=== PATIENT | female | born 1975 | race Caucasian/White ===

== ENCOUNTER 2021-09-08 23:08 | Emergency (ER) | payer OTHER ==
[2021-09-08 23:20] VITALS: BP 114/73; PULSE 74; TEMP 99; BMI 30.7
[2021-09-08] MEDS ORDERED: predniSONE 20 MG TABLET (UD) PO ONE (23:47)
[2021-09-08] MEDS ORDERED: valACYclovir HCL 1000 MG TABLET PO ONE (23:47)
[2021-09-09] MEDS ORDERED: predniSONE 20 MG TABLET (UD) ONE (00:15)
[2021-09-09] MEDS ORDERED: valACYclovir HCL 500 MG TABLET (FP) ONE (00:15)
[2021-09-09] MEDS ORDERED: PSEUDOEPHEDRINE HCL 60 MG TABLET PO ONE (01:41)
[2021-09-09] MEDS ORDERED: AMOX TR/POT CLAV 875MG/125MG TABLETS (FP) PO ONE (01:41)
[2021-09-09] MEDS ORDERED: PSEUDOEPHEDRINE HCL 60 MG TABLET ONE (01:52)
[2021-09-09] MEDS ORDERED: AMOX TR/POT CLAV 875MG/125MG TABLETS (FP) ONE (01:52)
== END 2021-09-09 02:01 | disposition home or self-care (01) ==
LOC: JER 23:08
DX: J01.00 Acute maxillary sinusitis, unspecified (principal)
CPT/HCPCS: 99283-25